=== PATIENT | female | born 1965 | race Hispanic/Latino ===

== ENCOUNTER → 2024-05-31 | Outpatient (REF) | payer OTHER ==
[~2024-05-31] MED LIST: AMLODIPINE BESYL5 MG PO; LEVOTHYROXINE100 MC1 IV; METFORMIN HCL1000 MG PO; PIOGLITAZONE HC45 MG PO; SERTRALINE HCL50 MG PO; ZETIA10 MG PO
== END ==
LOC: US 09:01
PROVIDERS: ATTEND Nurse Practitioner
DX: R74.8 Abnormal levels of other serum enzymes (principal)
CPT/HCPCS: 76700